=== PATIENT | female | born 1990 | race Native Hawaiian/Other Pacific Islander ===

== ENCOUNTER 2016-10-06 12:57 | Outpatient (CLI) | payer OTHER | END 2016-10-06 20:30 | disposition home or self-care (01) | LOC: US 12:57 | DX: Z30.014 Encounter for initial prescription of intrauterine contraceptive device (principal) ==

== ENCOUNTER 2019-06-08 12:22 | Outpatient (CLI) | payer OTHER | END 2019-06-08 20:32 | disposition home or self-care (01) | LOC: RAD 12:22 | DX: R10.2 Pelvic and perineal pain (principal) ==